=== PATIENT | male | born 1985 | race Caucasian/White ===

== ENCOUNTER 2021-05-16 08:00 | Outpatient (CLI) | payer OTHER | END 2021-05-16 23:59 | disposition home or self-care (01) | LOC: LAB 08:00 | PROVIDERS: ATTEND Physician Assistant Medical | DX: R05.8 Other specified cough (principal); Z20.822 Contact with and (suspected) exposure to COVID-19 ==

== ENCOUNTER 2022-04-11 05:21 | Emergency (ER) | payer OTHER ==
[2022-04-11] MEDS ORDERED: PROPARACAINE 0.5% OPHTH DROPS 15 ML LEFTEYE STA (05:33)
[2022-04-11] MEDS ORDERED: ERYTHROMYCIN OPHTH OINT 1 GM TUBE LEFTEYE STA (05:49)
--- NOTE | 2022-04-11 05:52 | ED Physician Documentation ---
PD HPI OPHTHO - Stated complaint Stated Complaint: LT EYE PX - Chief complaint Chief Complaint: Heent - History obtained from History obtained from: Patient - Additional information Additional information: Patient is a 36-year-old male presenting for evaluation of left eye pain since yesterday evening around 6 PM. Patient was cutting wood with a chainsaw and was not wearing eye protection when he felt something fly into his eye.He has felt worsening irritation to the eye and a burning discomfort. He has tried to flush the eye without improvement. His vision is normal. He does not normally wear glasses or contacts. Denies injuries elsewhere. Does not take a blood thinner. His last tetanus was 5 years ago. Review of Systems Constitutional: denies: Fever Eyes: reports: Photophobia Nose: denies: Congestion Cardiac: denies: Chest pain / pressure Respiratory: denies: Dyspnea GI: denies: Abdominal Pain Neurologic: denies: Head injury PD PAST MEDICAL HISTORY - Past Medical History Past Medical History: No - Past Surgical History Past Surgical History: No - Present Medications Home Medications: Ambulatory Orders Medication Instructions Recorded Confirmed Erythromycin Base [Erythromycin 1 appful LEFTEYE Q6HR 5 Days #1 gm 04/11/22 Ophthalmic Ointment] - Allergies Allergies/Adverse Reactions: Allergies Allergy/AdvReac Type Severity Reaction Status Date / Time No Known Drug Allergies Allergy Verified 04/11/22 05:30 - Social History Does the pt smoke?: No Smoking Status: Never smoker Does the pt drink ETOH?: Yes ETOH Use: Beer Does the pt have substance abuse?: No - Immunizations Immunizations are current?: Yes - POLST Patient has POLST: No PD ED PE NORMAL - General General: Alert and oriented X 3, No acute distress, Well developed/nourished - HEENT HEENT: Atraumatic, PERRL, EOMI - Respiratory Respiratory: No respiratory distress - Derm Derm: Warm and dry - Neuro Neuro: Normal speech PD ED PE EXPANDED - Eyes Eyes: PERRL, EOMI, Normal eyelids, No eyelid FB (everted), Nl conjunctiva/sclera, Fluorescein uptake (Left eye: 2O'clock region), Anterior chambers clear. No: Eyelid injury, Eyelid swelling, Eyelid erythema, Conj/sclera FB, Subconj hemorrhage, Corneal FB, Hyphema Results - Vitals Vitals: Vital Signs - 24 hr 04/11/22 04/11/22 05:27 06:10 Temperature 36.8 C 36.7 C Heart Rate 81 72 Respiratory 16 16 Rate Blood Pressure 147/87 H 145/80 H O2 Saturation 98 99 Oxygen O2 Source Room air PD MEDICAL DECISION MAKING - ED course ED course: Patient with injury and pain to left eye. Visual acuity intact. No signs of globe rupture on exam.No findings of foreign body including with eversion of eyelid.Patient noted to have fluorescein uptake to outer upper portion of left cornea consistent with abrasion. Patient given erythromycin ointment. Offered pain medication which she declined. Patient counseled on need for close follow- up if symptoms do not improve over the weekend as well as strict return precautions for any worsening symptoms. Departure - Departure Disposition: 01 Home, Self Care Clinical Impression: Left cornea abrasion Qualifiers: Encounter type: initial encounter Qualified Code(s): S05.02XA - Injury of conjunctiva and corneal abrasion without foreign body, left eye, initial encounter Condition: Stable Instructions: ED Eye Injury Corneal Abrasion Follow-Up: Davonte Bowers MD [Provider Admit Priv/Credential] - Prescriptions: Erythromycin Base [Erythromycin Ophthalmic Ointment] 1 appful LEFTEYE Q6HR 5 Days #1 gm Comments: You were evaluated for an injury to your left eye. Fortunately your vision ap pears normal.You have an abrasion to the outer upper portion of your left cornea. I did not find signs of a foreign body in your eye or underneath your eyelid. I have sent a prescription for erythromycin ointment to in [place]. Please use this antibiotic and you can also use acetaminophen or ibuprofen as needed for pain. If your pain is not improved by Wednesday then please consider calling Dr. Bowers's ([facility]) office for close follow- up. If you have any worsening symptoms such as increased pain, change in vision, abnormal drainage, swelling or any concerns please return to the emergency department. Discharge Date/Time: 04/11/22 06:10
[2022-04-11 06:16] VITALS: BP 145/80
== END 2022-04-11 06:10 | disposition home or self-care (01) ==
LOC: ED 05:21
DX: S05.02XA Injury of conjunctiva and corneal abrasion without foreign body, left eye, initial encounter (principal); X58.XXXA Exposure to other specified factors, initial encounter; W31.2XXA Contact with powered woodworking and forming machines, initial encounter
CPT/HCPCS: 99282; J3490

== ENCOUNTER 2022-10-01 08:22 | Outpatient (CLI) | payer OTHER ==
[2022-10-01 11:26] LABS: BASOPHILS % (AUTO) 0.5 %; EOSINOPHILS # (AUTO) 0.2 10^3/uL (0.0-0.7); EOSINOPHILS % (AUTO) 2.9 %; LYMPHOCYTES # (AUTO) 2.5 10^3/uL (1.5-3.5); LYMPHOCYTES % (AUTO) 45.5 %; MEAN CORPUSCULAR HEMOGLOBIN 30.1 pg (27.0-31.0); MEAN CORPUSCULAR HGB CONC 33.3 g/dL (32.0-36.0); MEAN CORPUSCULAR VOLUME 90.4 fL (80.0-94.0); MEAN PLATELET VOLUME 10.6 fL (7.4-11.4); MONOCYTES # (AUTO) 0.5 10^3/uL (0.0-1.0); MONOCYTES % (AUTO) 8.8 %; NEUTROPHILS # (AUTO) 2.3 10^3/uL (1.5-6.6); NEUTROPHILS % (AUTO) 41.9 %; PLT - PLATELET COUNT 240 10^3/uL (130-450); RED BLOOD COUNT 5.31 10^6/uL (4.70-6.10); RED CELL DISTRIBUTION WIDTH 12.8 % (12.0-15.0); WHITE BLOOD COUNT 5.5 x10^3/uL (4.8-10.8)
[2022-10-01 11:39] LABS: ALBUMIN 4.3 g/dL (3.2-5.5); ALBUMIN/GLOBULIN RATIO 1.3 (1.0-2.2); ALKALINE PHOSPHATASE 54 IU/L (42-121); ALT ALANINE AMINOTRANSFERASE 25 IU/L (10-60); AST ASPARTATE AMINOTRANSFERASE 20 IU/L (10-42); BILIRUBIN,TOTAL 0.7 mg/dL (0.2-1.0); BUN - BLOOD UREA NITROGEN 13 mg/dL (6-20); CALCIUM 9.5 mg/dL (8.5-10.3); CARBON DIOXIDE - CO2 27 mmol/L (21-32); CHLORIDE 105 mmol/L (101-111); CHOL/HDL RATIO 2.6 (<5.0); CHOLESTEROL 182 mg/dL; CREATININE 0.8 mg/dL (0.6-1.2); GFR - MDRD 110 (>89); GLUCOSE 96 mg/dL (70-100); HDL CHOLESTEROL 70 mg/dL; LDL CHOLESTEROL,CALCULATED 99 mg/dL; LDL/HDL RATIO 1.4 (<3.6); POTASSIUM 4.2 mmol/L (3.5-5.0); SODIUM 141 mmol/L (135-145); TOTAL PROTEIN 7.6 g/dL (6.7-8.2); TRIGLYCERIDES 67 mg/dL; VLDL CHOLESTEROL 13 mg/dL
[2022-10-01 15:47] LABS: THYROID STIMULATING HORMONE 2.45 uIU/mL (0.34-5.60)
== END 2022-10-01 08:23 | disposition home or self-care (01) ==
LOC: LAB.N 08:22
PROVIDERS: ATTEND Physician Assistant
DX: R03.0 Elevated blood-pressure reading, without diagnosis of hypertension (principal); Z13.220 Encounter for screening for lipoid disorders; Z13.29 Encounter for screening for other suspected endocrine disorder; R79.9 Abnormal finding of blood chemistry, unspecified
CPT/HCPCS: 36415; 80053; 80061; 83721; 84403; 84443; 85025